=== PATIENT | male | born 1995 | race Two or more races ===

== ENCOUNTER 2025-02-22 01:28 | Emergency (ER) | payer SELFPAY ==
[~2025-02-22] VITALS: Ht 175.3 cm; Wt 81.8 kg
--- NOTE | 2025-02-22 01:54 | ED.PDOC ---
History of Present Illness HPI Comments 29 year old male was BIBA for the c/c of SI. Per EMS pt was out drinking liquor with friends when he was detain by the [facility] department for public drunkenness. Ems states pt was put in the back seat of a police vehicle when he started banging his head against the window and threatening law enforcement and making statements about wanting to harm himself. Pt is noted to be on a [address] the [facility] department at this time. No other associated symptoms, modifiers, recent injuries or sick contacts present at this time. Time Seen by MD: 01:50 Reviewed Notes: Nurses Notes, Boy'S Adviser Notes, Medications, Allergies Allergies: Coded Allergies: NO KNOWN ALLERGIES (Unverified , 02/22/25) Information Source: Patient, Emergency Med Personnel Mode of Arrival: EMS Severity: Moderate Timing: Hours Duration: Since onset, Hours Prehospital treatment: None Vital Signs Vital Signs Date Time Temp Pulse Resp B/P (MAP) Pulse Ox O2 Delivery O2 Flow Rate FiO2 02/23/25 01:37 98.0 84 18 126/68 (87) 99 98.0 02/23/25 01:37 Room Air* 0 N/A Nasal Cannula* Physical Exam General: Awake, alert and oriented. No acute distress. Skin: Skin in warm, dry and intact. Appropriate color for ethnicity. HEENT: Erythema and abrasion over the frontal scalp. Conjunctivae are clear without exudates or hemorrhage. Sclera is non-icteric. EOM are intact. No signs of nystagmus. Eyelids are normal in appearance without swelling or lesions. Oral mucosa is pink and moist Neck: The neck is supple with normal range of motion. No JVD. Cardiac: Heart rate and rhythm are normal. No murmurs, gallops, or rubs are auscultated. Respiratory: No signs of respiratory distress. Lung sounds are clear in all lobes bilaterally without rales, rhonchi, or wheezes. Abdominal: Abdomen is soft, non-tender without distention, guarding or rigidity. Bowel sounds are present and normoactive in all four quadrants. Extremities: Upper and lower extremities are atraumatic in appearance without deformity or edema. Neurological: The patient is awake, alert and oriented to person, place, and time with normal speech. Speech is clear. There is no facial asymmetry. Patient has a normal gait. Using upper and lower extremities purposefully with good coordination. Psychiatric: Patient appears hyperactive, anxious Review of Systems: REVIEW OF SYSTEMS: No fever, no chills, or fatigue HEENT: No sore throat, no earache, no congestion, no neck pain. Cardiac: No chest pain. No palpitations. Lungs: No shortness of breath, no cough. GI: No nausea, no vomiting, no diarrhea, no constipation, no abdominal pain : No dysuria, frequency, or urgency. No hematuria. Musculoskeletal: No joint pain , no joint swelling, no extremity edema. Skin: No rash, no itching. Neuro: No headache, no dizziness, no weakness Was a procedure done? Was a procedure done?: No Differential Dx Considerations may include: SI, HI X-Ray, Labs, Meds, VS Vital Signs Date Time Temp Pulse Resp B/P (MAP) Pulse Ox O2 Delivery O2 Flow Rate FiO2 02/23/25 01:37 98.0 84 18 126/68 (87) 99 98.0 02/23/25 01:37 85 16 98 Room Air* 0 N/A Nasal Cannula* 02/22/25 08:00 97.9 87 18 115/70 (85) 98 97.9 02/22/25 08:00 18 Room Air* 0 21 02/22/25 02:55 98.6 91 20 127/71 (89) 98 98.6 02/22/25 01:30 98.6 89 18 130/68 (88) 98 98.6 Lab Test 02/22/25 09:51 02/22/25 06:02 02/22/25 02:20 02/22/25 02:00 Range/Units SARS-CoV-2 Antigen (Rapid) Negative NEGATIVE Plasma/Serum Blood Alcohol 81.7 H 160.5 H <10 mg/dL Urine Color Colorless Yellow Urine Clarity Clear Clear Urine pH 6.0 5.0-9.0 Urine Specific Armour 1.002 1.001-1.035 Urine Protein Negative Negative Urine Ketones Negative Negative Urine Blood Negative Negative /uL Urine Nitrite Negative Negative Urine Bilirubin Negative Negative Urine Urobilinogen Normal Negative mg/dL Urine Leukocyte Esterase Negative Negative /uL Urine RBC <1 0 - 3 /hpf Urine Microscopic WBC < 1 0-3 /HPF Urine Squamous Epithelial Cells None seen <5 /hpf Urine Bacteria None seen None Seen /hpf Urine Glucose Normal Normal mg/dL Urine Opiates Screen Neg NEGATIVE Urine Fentanyl Screen Neg NEGATIVE Urine Barbiturates Screen Neg NEGATIVE Urine Phencyclidine Screen Neg NEGATIVE Urine Amphetamines Screen Neg NEGATIVE Urine Benzodiazepines Screen Neg NEGATIVE Urine Cocaine Screen Neg NEGATIVE Urine Cannabinoids Screen Pos NEGATIVE White Blood Count 6.1 4.4-10.8 10^3/uL Red Blood Count 5.81 4.5-5.90 10^6/uL Hemoglobin 15.8 13.5-17.5 g/dL Hematocrit 47.0 41.0-53.0 % Mean Corpuscular Volume 80.9 80.0-100.0 fL Mean Corpuscular Hemoglobin 27.3 L 28.0-32.0 pg Mean Corpuscular Hemoglobin Concent 33.7 32.0-36.0 g/dL Red Cell Distribution Width 14.6 H 11.8-14.3 % Platelet Count 197 140-450 10^3/uL Mean Platelet Volume 8.3 6.9-10.8 fL Neutrophils (%) (Auto) 76.1 37.0-80.0 % Lymphocytes (%) (Auto) 18.4 10.0-50.0 % Monocytes (%) (Auto) 5.1 0.0-12.0 % Eosinophils (%) (Auto) 0.1 0.0-7.0 % Basophils (%) (Auto) 0.3 0.0-2.0 % Neutrophils # (Auto) 4.6 1.6-8.6 10 ^3/uL Lymphocytes # (Auto) 1.1 0.4-5.4 10 ^3/uL Monocytes # (Auto) 0.3 0-1.3 10 ^3/uL Eosinophils # (Auto) 0 0-0.8 10 ^3/uL Basophils # (Auto) 0 0-0.2 10 ^3/uL Nucleated Red Blood Cells 0.1 % Sodium Level 144 136-145 mmol/L Potassium Level 3.9 3.5-5.1 mmol/L Chloride Level 111 H 98-107 mmol/L Carbon Dioxide Level 22 20-31 mmol/L Anion Gap 11 5-15 Blood Urea Nitrogen 7 L 9-23 mg/dL Creatinine 0.84 0.700-1.30 mg/dL Glomerular Filtration Rate Calc 120 >90 mL/min BUN/Creatinine Ratio 8.3 L 10.0-20.0 Serum Glucose 102 74-106 mg/dL Calcium Level 10.6 H 8.7-10.4 mg/dL Total Bilirubin 0.5 0.2-1.0 mg/dL Aspartate Amino Transferase (AST) 10 L 13-40 U/L Alanine Aminotransferase (ALT) 13 7-40 U/L Alkaline Phosphatase 83 46-116 U/L Total Protein 7.8 5.7-8.2 g/dL Albumin 5.1 H 3.2-4.8 g/dL X-Ray, Labs, Meds, VS Comment History is nurse practitioner: 02/23/2025 had 2:04 a.m. While speaking with the patient he voiced no thoughts of self-harm or hurting on else. Patient was very polite. It was recommended that psych consult be placed with Dr. Garces. Consult with Dr. Garces: Plan: Does not warrant involuntary inpatient psychiatric hospitalization or 5150 hold at this time No acute safety concerns Pt can be safely discharged back to current residence Supportive tx/VT provided, discussed safety plan with pt Emphasized sleep hygiene, exercise, healthy nutrition, LIMIT THC/EtOH intake Encouraged mindfulness techniques (reading, walking, meditation, journaling, exercise, deep breathing) during times of stress Would benefit from establishing community MH services for psychotx/psychiatric med initiation/management please provide pt MH resources prior to discharge per pts request for psychotherapy Instructed pt to call/text [phone] or return to ED if MH symptoms worsen or new onset SI/HI upon discharge Discharged type stuff for patient, presumed patient eloped as he has no answer for paperwork. Time of 1ST Reevaluation: 02:20 Reevaluation 1ST: Unchanged Patient Education/Counseling: Need For Follow Up Family Education/Counseling: No Family Present Departure 1 Departure Time of Disposition: 05:53 Impression: Primary Impression: Self-harm Additional Impression: Suicidal thoughts Disposition: 01 HOME / SELF CARE / HOMELESS Condition: Stable Comments 29-year-old male placed under 5150 hold by the [facility] department for suicidal ideation. Patient is medically cleared. 5150 hold removed Critical Care Note Critical Care Time?: No Stability Stability form required: No Heart Score Heart Score: Heart Score Response (Comments) Value History N/A 0 EKG N/A 0 Age N/A 0 Risk Factors N/A 0 Troponin N/A 0 Total 0 I personally scribed for WILMA KEY MD ([email or web address]) on 02/22/25 at 01:54. Electronically submitted by Dany Tam ([email or web address]). I personally scribed for WILMA KEY MD ([email or web address]) on 02/22/25 at 02:09. Electronically submitted by Dany Tam ([email or web address]). WILMA KEY MD Feb 22, 2025 01:54 ERUM SRIVASTAVA Feb 23, 2025 02:06
[2025-02-22 02:12] LABS: Basophils # (auto) 0 10 ^3/uL (0-0.2); Basophils % (auto) 0.3 % (0.0-2.0); Eosinophils # (auto) 0 10 ^3/uL (0-0.8); Eosinophils % (auto) 0.1 % (0.0-7.0); Hemoglobin 15.8 g/dL (13.5-17.5); Lymphocytes # (auto) 1.1 10 ^3/uL (0.4-5.4); Lymphocytes % (auto) 18.4 % (10.0-50.0); Mean Corpuscular Hemoglobin 27.3 pg (28.0-32.0); Mean Corpuscular Hgb Conc. 33.7 g/dL (32.0-36.0); Mean Corpuscular Volume 80.9 fL (80.0-100.0); Monocytes # (auto) 0.3 10 ^3/uL (0-1.3); Monocytes % (auto) 5.1 % (0.0-12.0); Neutrophils # (auto) 4.6 10 ^3/uL (1.6-8.6); Neutrophils % (auto) 76.1 % (37.0-80.0); Nucleated Red Blood Cells % 0.1 %; Platelet Count (auto) 197 10^3/uL (140-450); Red Blood Cells 5.81 10^6/uL (4.5-5.90); Red Cell Distribution Width 14.6 % (11.8-14.3); White Blood Cell 6.1 10^3/uL (4.4-10.8)
[2025-02-22 02:28] LABS: Urine Bacteria None Seen /hpf (None Seen)
[2025-02-22 02:32] LABS: Alanine Aminotransferase 13 U/L (7-40); Alkaline Phosphatase 83 U/L (46-116); Anion Gap 11 (5-15); BUN/Creatinine Ratio 8.3 (10.0-20.0); Bilirubin, Total 0.5 mg/dL (0.2-1.0); Blood Alcohol 160.5 mg/dL (<10); Blood Urea Nitrogen 7 mg/dL (9-23); Carbon Dioxide 22 mmol/L (20-31); Chloride 111 mmol/L (98-107); Glucose 102 mg/dL (74-106); Potassium 3.9 mmol/L (3.5-5.1); Sodium 144 mmol/L (136-145); Total Protein 7.8 g/dL (5.7-8.2)
[2025-02-22 02:33] LABS: Albumin 5.1 g/dL (3.2-4.8); Aspartate Aminotransferase 10 U/L (13-40); Calcium 10.6 mg/dL (8.7-10.4)
[2025-02-22 02:35] LABS: Urine Blood Negative /uL (Negative); Urine Clarity Clear (Clear); Urine Color Colorless (Yellow); Urine Protein, UAD Negative (Negative); Urine Specific Gravity 1.002 (1.001-1.035); Urine Squamous Epithelial Cell None Seen /hpf (<5); Urine Urobilinogen Normal (Negative)
[2025-02-22 02:38] LABS: Urine WBC < 1 /HPF (0-3)
[2025-02-22 02:54] LABS: Cannabinoid Screen, Urine Pos (NEGATIVE)
[2025-02-22 02:57] LABS: Amphetamine Screen, Urine Neg (NEGATIVE); Barbiturate Scree,Urine Neg (NEGATIVE); Benzodiazephine Screen, Urine Neg (NEGATIVE); Cocaine Screen, Urine Neg (NEGATIVE); Opiate Scree,Urine Neg (NEGATIVE); Phencyclidine Screen, Urine Neg (NEGATIVE)
[2025-02-22 08:00] VITALS: RESP 18
[2025-02-22 10:33] LABS: COVID19 ANTIGEN SOFIA FIA NEGATIVE (NEGATIVE)
[2025-02-23 01:37] VITALS: BP 126/68; PULSE 85; RESP 16; TEMP 98; O2SAT 98
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
== END 2025-02-23 02:09 | disposition home or self-care (01) ==
LOC: ER 01:28
DX: R45.851 Suicidal ideations (principal); Z79.899 Other long term (current) drug therapy; Z20.822 Contact with and (suspected) exposure to COVID-19
CPT/HCPCS: 36415; 80053; 80307; 80320; 81001; 85025; 87426